=== PATIENT | female | born 1985 | race Caucasian/White ===

== ENCOUNTER 2016-10-11 13:24 | Emergency (ER) | payer SELFPAY ==
--- NOTE | 2016-10-11 14:14 | ED CLINICAL REPORT ---
Clinical Report - Physicians/Mid Levels [facility] [address] [place] [place] [address] 10/11/2016 13:27 [id number] Time Seen: 14:16 Oct 11 2016. Arrived- By private vehicle. Historian- patient. HISTORY OF PRESENT ILLNESS Chief Complaint: DENTAL PAIN. This started just prior to arrival and is still present. Pain described as moderate. (patient reports fractures of the upper tooth about 6-8 months previously, has not been given her problems until yesterday, she felt pain and swelling. No diff swallowing. NO meds/ tx prior. No recent dental visit. No trauma . No cough.). REVIEW OF SYSTEMS No fever, diarrhea or abdominal pain. All systems otherwise negative, except as recorded above. SOCIAL HISTORY Current every day smoker. Alcohol use. PHYSICAL EXAM Appearance: Alert. No acute distress. Head: (facial upper swelling just superior to lip, no erythema). ENT: Dental tenderness. Ears normal. Nose normal. Pharynx normal. Lips normal. (gum erythema, with fx of molar tooth to left side, with surrounding tendernss. uvula midline). No trismus. Neck: Lymphadenopathy present. Trachea midline. No adenopathy. Thyroid normal. Respiratory: No respiratory distress. Breath sounds normal. Abdomen: Soft. No organomegaly. No abdominal tenderness or rebound tenderness. Skin: Normal skin color. No rash. PROGRESS AND PROCEDURES Course of Care: Patient with uvula midline, no trismus. No signs of Andrew's angina. Patient very stable. Patient does require follow-up with a dentist, as this will continue to recur. Patient is stable. Symptoms better. Patient/family counseled. Disposition: Discharged. Condition: good. CLINICAL IMPRESSION Moderate dental pain. INSTRUCTIONS Drink plenty of fluids. (external ice warm salt water gargles Take probiotics). Prescription Medications: Cleocin 300 mg: take 1 capsule orally every 8 hours for 10 days. No refill. Substitution is permissible. Ibuprofen 800 mg tablets: take 1 tablet orally every 8 hours for 5 days, as needed for pain. Dispense fifteen (15). No refill. Follow-up: Follow up with a specialist. (Electronically signed by Margo Hernandez P.A.-C 10/11/2016 14:54)
--- NOTE | 2016-10-11 14:14 | ED CLINICAL REPORT ---
Clinical Report - Physicians/Mid Levels [facility] [address] [place] [place] [address] 10/11/2016 13:27 [id number] Time Seen: 14:16 Oct 11 2016. Arrived- By private vehicle. Historian- patient. HISTORY OF PRESENT ILLNESS Chief Complaint: DENTAL PAIN. This started just prior to arrival and is still present. Pain described as moderate. (patient reports fractures of the upper tooth about 6-8 months previously, has not been given her problems until yesterday, she felt pain and swelling. No diff swallowing. NO meds/ tx prior. No recent dental visit. No trauma . No cough.). REVIEW OF SYSTEMS No fever, diarrhea or abdominal pain. All systems otherwise negative, except as recorded above. SOCIAL HISTORY Current every day smoker. Alcohol use. PHYSICAL EXAM Appearance: Alert. No acute distress. Head: (facial upper swelling just superior to lip, no erythema). ENT: Dental tenderness. Ears normal. Nose normal. Pharynx normal. Lips normal. (gum erythema, with fx of molar tooth to left side, with surrounding tendernss. uvula midline). No trismus. Neck: Lymphadenopathy present. Trachea midline. No adenopathy. Thyroid normal. Respiratory: No respiratory distress. Breath sounds normal. Abdomen: Soft. No organomegaly. No abdominal tenderness or rebound tenderness. Skin: Normal skin color. No rash. PROGRESS AND PROCEDURES Course of Care: Patient with uvula midline, no trismus. No signs of Andrew's angina. Patient very stable. Patient does require follow-up with a dentist, as this will continue to recur. Patient is stable. Symptoms better. Patient/family counseled. Disposition: Discharged. Condition: good. CLINICAL IMPRESSION Moderate dental pain. INSTRUCTIONS Drink plenty of fluids. (external ice warm salt water gargles Take probiotics). Prescription Medications: Cleocin 300 mg: take 1 capsule orally every 8 hours for 10 days. No refill. Substitution is permissible. Ibuprofen 800 mg tablets: take 1 tablet orally every 8 hours for 5 days, as needed for pain. Dispense fifteen (15). No refill. Follow-up: Follow up with a specialist. (Electronically signed by Margo Hernandez P.A.-C 10/11/2016 14:54)
--- NOTE | 2016-10-11 14:14 | ED ORDER SUMMARY ---
..... Patient: AMADA GALLAGHER OrderSheet [facility] VisitID: [id number] [address] [place] [address] 31y, F Registration Date/Time: 10/11/2016 ORDER SHEET Weight: 77.1 kg (stated) Allergies: No Known Drug Allergy GENERAL ORDERS: MEDICATION ORDERS: Clindamycin PO 300 mg (NOW) (14:13 10/11/2016 EKorolekorin P.A.-C) (Ack 14:14 DDean R.N.) (14:22 DDean R.N.) Motrin PO 800 mg (NOW) (14:13 10/11/2016 Barbilekorin P.A.-C) (Ack 14:14 DDean R.N.) (14:23 DDean R.N.) Hydrocodone-APAP PO 5/325 mg (NOW, HIGH ALERT MEDICATION) (14:13 10/11/2016 Madelyn P.A.-C) (Ack 14:14 DDean R.N.) (14:23 DDean R.N.) IV FLUIDS: ORDER SHEET NOTES: [Electronically signed by Tonya Freitas R.N. (14:23 10/11/2016)] [Electronically signed by Margo HernandezAEnma-C (14:54 10/11/2016)] [Electronically locked/signed by Tonya rFeitas R.N. (14:23 10/11/2016)]
--- NOTE | 2016-10-11 14:14 | ED ORDER SUMMARY ---
..... Patient: AMADA GALLAGHER OrderSheet [facility] VisitID: [id number] [address] [place] [address] 31y, F Registration Date/Time: 10/11/2016 ORDER SHEET Weight: 77.1 kg (stated) Allergies: No Known Drug Allergy GENERAL ORDERS: MEDICATION ORDERS: Clindamycin PO 300 mg (NOW) (14:13 10/11/2016 EKorolekoirn P.A.-C) (Ack 14:14 DDean R.N.) (14:22 DDean R.N.) Motrin PO 800 mg (NOW) (14:13 10/11/2016 Barbilekorin P.A.-C) (Ack 14:14 DDean R.N.) (14:23 DDean R.N.) Hydrocodone-APAP PO 5/325 mg (NOW, HIGH ALERT MEDICATION) (14:13 10/11/2016 Madelyn P.A.-C) (Ack 14:14 DDean R.N.) (14:23 DDean R.N.) IV FLUIDS: ORDER SHEET NOTES: [Electronically signed by Tonya Freitas R.N. (14:23 10/11/2016)] [Electronically signed by Margo HernandezAEnma-C (14:54 10/11/2016)] [Electronically locked/signed by Tonya Freitas R.N. (14:23 10/11/2016)]
--- NOTE | 2016-10-11 14:14 | ED NURSING NOTES ---
Clinical Report - Nurses [facility] [address] [place] [address] 10/11/2016 13:27 Patient: AMADA GALLAGHER TRIAGE Triage time 1402. Acuity: LEVEL 4. Chief Complaint: LEFT UPPER TOOTHACHE and SWELLING OF JAW / FACE. --14:10 Tonya Freitas R.N. 14:00 10/11/16. BP: 121/79. HR: 94. RR: 18. O2 saturation: 98%. Temp: 98 F. Pain level now: 02/17. --14:10 Tonya Freitas R.N. Weight: 77.1 kg stated. Height/Length: 59 inches Per Patient. BMI: 34.4. --14:08 Tonya Freitas R.N. Medications Excedrin Extra Strength Oral 2 tabs yesterday 1600. None. --14:07 Tonya Freitas R.N. Allergies No Known Drug Allergy. --14:07 Tonya Freitas R.N. History Arrived by private vehicle. Historian: patient. Accompanied by friend. No primary care physician. This started yesterday. Onset. (cracked tooth 6 months ago- Left upper area, faical pain and swelling onset yesterday. left side). She has had facial pain. She has had swelling of the face. PAST MEDICAL HX: Negative. Immunizations: up-to-date. Last normal menstrual period- 1 week. SURGERY HX: No history of previous surgery. SOCIAL HX: Heavy tobacco smoker- less than 1 pack per day. Occasional alcohol use. No drug use. --14:10 Tonya Freitas R.N. Interventions ID band on patient. To treatment room. --14:10 Tonya Freitas R.N. PHYSICAL ASSESSMENT 14:02. Ambulatory to room. GENERAL / NEURO / PSYCH: Alert. Oriented X 4. Appears in pain. HEENT: Facial swelling present. Voice within normal limits. Mouth within normal limits upon inspection. Dental tenderness. CVS: Capillary refill less than 2 seconds. SKIN: Skin is warm and dry. --14:11 Tonya Freitas R.N. NURSING PROGRESS NOTES 14:07. Cold pack applied. Reassurance given. Patient placed in chair. Patient ready for evaluation- chart flagged. --14:11 Tonya Freitas R.N. 14:12 10/11/16. ( Pt seen by EDPA in triage room). --14:12 Tonya Freitas R.N. 14:15 10/11/2016 Clindamycin PO Capsules 300 mg given. Allergies verified and confirmed 5 rights. --14:22 Tonya Freitas R.N. 14:15 10/11/2016 Motrin PO Tablets 800 mg given. Allergies verified and confirmed 5 rights. --14:23 Tonya Freitas R.N. 14:15 10/11/2016 Hydrocodone-APAP (Hydrocodone-Acetaminophen) PO 5/325 mg Tablets 1 tab given. Allergies verified, confirmed 5 rights and sedative warning given to the patient. --14:23 Tonya Freitas R.N. 14:15 pt given po meds. --14:23 Tonya Freitas R.N. DISPOSITION / DISCHARGE 14:18. Condition at departure: unchanged and stable. No learning barriers present. Discharge instructions provided and reviewed with the patient. Reviewed medication(s) (clindamycin, motrin). Reviewed referrals (dental referral sheet given). Patient verbalized understanding. Written instructions provided in Bulgarian. The patient was discharged home and accompanied by construction electrician. She left the Emergency Department ambulatory and via private vehicle. Food Service Hotel Runner driving. --14:22 Tonya Freitas R.N. 14:20 10/11/16. BP: deferred. HR: deferred. RR: deferred. O2 saturation: deferred. Temp: deferred. Pain level now: 02/17. --14:22 Tonya Freitas R.N. Locked/Released at 10/11/2016 14:23 by Tonya Freitas R.N.
--- NOTE | 2016-10-11 14:14 | ED NURSING NOTES ---
Clinical Report - Nurses [facility] [address] [place] [address] 10/11/2016 13:27 Patient: AMADA GALLAGHER TRIAGE Triage time 1402. Acuity: LEVEL 4. Chief Complaint: LEFT UPPER TOOTHACHE and SWELLING OF JAW / FACE. --14:10 Tonya Freitas R.N. 14:00 10/11/16. BP: 121/79. HR: 94. RR: 18. O2 saturation: 98%. Temp: 98 F. Pain level now: 02/17. --14:10 Tonya Freitas R.N. Weight: 77.1 kg stated. Height/Length: 59 inches Per Patient. BMI: 34.4. --14:08 Tonya Freitas R.N. Medications Excedrin Extra Strength Oral 2 tabs yesterday 1600. None. --14:07 Tonya Freitas R.N. Allergies No Known Drug Allergy. --14:07 Tonya Freitas R.N. History Arrived by private vehicle. Historian: patient. Accompanied by friend. No primary care physician. This started yesterday. Onset. (cracked tooth 6 months ago- Left upper area, faical pain and swelling onset yesterday. left side). She has had facial pain. She has had swelling of the face. PAST MEDICAL HX: Negative. Immunizations: up-to-date. Last normal menstrual period- 1 week. SURGERY HX: No history of previous surgery. SOCIAL HX: Heavy tobacco smoker- less than 1 pack per day. Occasional alcohol use. No drug use. --14:10 Tonya Freitas R.N. Interventions ID band on patient. To treatment room. --14:10 Tonya Freitas R.N. PHYSICAL ASSESSMENT 14:02. Ambulatory to room. GENERAL / NEURO / PSYCH: Alert. Oriented X 4. Appears in pain. HEENT: Facial swelling present. Voice within normal limits. Mouth within normal limits upon inspection. Dental tenderness. CVS: Capillary refill less than 2 seconds. SKIN: Skin is warm and dry. --14:11 Tonya Freitas R.N. NURSING PROGRESS NOTES 14:07. Cold pack applied. Reassurance given. Patient placed in chair. Patient ready for evaluation- chart flagged. --14:11 Tonya Freitas R.N. 14:12 10/11/16. ( Pt seen by EDPA in triage room). --14:12 Tonya Freitas R.N. 14:15 10/11/2016 Clindamycin PO Capsules 300 mg given. Allergies verified and confirmed 5 rights. --14:22 Tonya Freitas R.N. 14:15 10/11/2016 Motrin PO Tablets 800 mg given. Allergies verified and confirmed 5 rights. --14:23 Tonya Freitas R.N. 14:15 10/11/2016 Hydrocodone-APAP (Hydrocodone-Acetaminophen) PO 5/325 mg Tablets 1 tab given. Allergies verified, confirmed 5 rights and sedative warning given to the patient. --14:23 Tonya Freitas R.N. 14:15 pt given po meds. --14:23 Tonya Freitas R.N. DISPOSITION / DISCHARGE 14:18. Condition at departure: unchanged and stable. No learning barriers present. Discharge instructions provided and reviewed with the patient. Reviewed medication(s) (clindamycin, motrin). Reviewed referrals (dental referral sheet given). Patient verbalized understanding. Written instructions provided in [place]. The patient was discharged home and accompanied by anesthesia attending. She left the Emergency Department ambulatory and via private vehicle. Plating Foreman driving. --14:22 Tonya Freitas R.N. 14:20 10/11/16. BP: deferred. HR: deferred. RR: deferred. O2 saturation: deferred. Temp: deferred. Pain level now: 02/17. --14:22 Tonya Freitas R.N. Locked/Released at 10/11/2016 14:23 by Tonya Freitas R.N.
--- NOTE | 2016-10-11 14:54 | ED MED RECONCILIATION SUMMARY ---
Patient: AMADA GALLAGHER Medication Reconciliation Report [facility]ated [facility] VisitID: [id number] [address] [place] [address] 31y, F Registration Date/Time: 10/11/2016 Weight: 77.1 kg Height/Length: 59 in. BMI: 34.4 ALLERGIES: No Known Drug Allergy The patient's Home Medications are listed below: THE FOLLOWING MEDICATIONS NEED TO BE RECONCILED: Excedrin Extra Strength Oral 2 tabs yesterday 1600 The source(s) of the original Home Medication information: Not obtained. The following Medications were given to the patient in the Emergency Department: Clindamycin [PO] PO 300 mg, administered: 10/11/2016 2:15:00 PM Motrin [PO] PO 800 mg, administered: 10/11/2016 2:15:00 PM Hydrocodone-APAP [PO] PO 1 tab, administered: 10/11/2016 2:15:00 PM The following Medications were prescribed to the patient: Cleocin 300 mg: take 1 capsule orally every 8 hours for 10 days. No refill. Substitution is permissible. -- Margo Hernandez, P.A.-C Ibuprofen 800 mg tablets: take 1 tablet orally every 8 hours for 5 days, as needed for pain. Dispense fifteen (15). No refill. -- Margo Hernandez, P.A.-C
--- NOTE | 2016-10-11 14:54 | ED MAR SUMMARY ---
..... Medication Administration Record [facility] [address] [place] [address] Patient: AMADA GALLAGHER Visit ID: [id number] 31y, F Weight: 77.1 kg Height/Length: 59 in BMI: 34.4 ALLERGIES: No Known Drug Allergy Given 14:10/11/2016 Tonya Freitas R.N. Medication Administered: CLINDAMYCIN [PO], Dose: 300 mg Capsules PO. Medication Ordered: Clindamycin PO 300 mg (NOW). Given 14:10/11/2016 Tonya Freitsa R.N. Medication Administered: MOTRIN [PO], Dose: 800 mg Tablets PO. Medication Ordered: Motrin PO 800 mg (NOW). Given :10/11/2016 Tonya Freitas R.N. Medication Administered: HYDROCODONE-APAP [PO] (HYDROCODONE-ACETAMINOPHEN), Dose: 1 tab 5/325 mg Tablets PO. Medication Ordered: Hydrocodone-APAP PO 5/325 mg (NOW, HIGH ALERT MEDICATION).
--- NOTE | 2016-10-11 14:54 | ED MAR SUMMARY ---
..... Medication Administration Record [facility] [address] [place] [address] Patient: AMADA GALLAGHER Visit ID: [id number] 31y, F Weight: 77.1 kg Height/Length: 59 in BMI: 34.4 ALLERGIES: No Known Drug Allergy Given 14:10/11/2016 Tonya Freitas R.N. Medication Administered: CLINDAMYCIN [PO], Dose: 300 mg Capsules PO. Medication Ordered: Clindamycin PO 300 mg (NOW). Given 14:10/11/2016 Tonya Freitas R.N. Medication Administered: MOTRIN [PO], Dose: 800 mg Tablets PO. Medication Ordered: Motrin PO 800 mg (NOW). Given :10/11/2016 Tonya Freitas R.N. Medication Administered: HYDROCODONE-APAP [PO] (HYDROCODONE-ACETAMINOPHEN), Dose: 1 tab 5/325 mg Tablets PO. Medication Ordered: Hydrocodone-APAP PO 5/325 mg (NOW, HIGH ALERT MEDICATION).
--- NOTE | 2016-10-11 14:54 | ED MED RECONCILIATION SUMMARY ---
Patient: AMADA GALLAGHER Medication Reconciliation Report [facility] VisitID: [id number] [address] [place] [address] 31y, F Registration Date/Time: 10/11/2016 Weight: 77.1 kg Height/Length: 59 in. BMI: 34.4 ALLERGIES: No Known Drug Allergy The patient's Home Medications are listed below: THE FOLLOWING MEDICATIONS NEED TO BE RECONCILED: Excedrin Extra Strength Oral 2 tabs yesterday 1600 The source(s) of the original Home Medication information: Not obtained. The following Medications were given to the patient in the Emergency Department: Clindamycin [PO] PO 300 mg, administered: 10/11/2016 2:15:00 PM Motrin [PO] PO 800 mg, administered: 10/11/2016 2:15:00 PM Hydrocodone-APAP [PO] PO 1 tab, administered: 10/11/2016 2:15:00 PM The following Medications were prescribed to the patient: Cleocin 300 mg: take 1 capsule orally every 8 hours for 10 days. No refill. Substitution is permissible. -- Margo Hernandez, P.A.-C Ibuprofen 800 mg tablets: take 1 tablet orally every 8 hours for 5 days, as needed for pain. Dispense fifteen (15). No refill. -- Margo Hernandez, P.A.-C
--- NOTE | 2016-10-11 14:54 | ED DISCHARGE INSTRUCTIONS ---
Patient: AMADA GALLAGHER General Instructions [facility] VisitID: [id number] [address] [place] [address] 31y, F Registration Date/Time: 10/11/2016 Moderate dental pain. INSTRUCTIONS Drink plenty of fluids. (external ice warm salt water gargles Take probiotics). Prescription Medications: Cleocin 300 mg: take 1 capsule orally every 8 hours for 10 days. No refill. Substitution is permissible. Ibuprofen 800 mg tablets: take 1 tablet orally every 8 hours for 5 days, as needed for pain. Dispense fifteen (15). No refill. Follow-up: Follow up with a specialist. ADDITIONAL INFORMATION Dental Pain A crack or cavity in the tooth, which exposes the sensitive inner area of the tooth can cause tooth pain. An infection in the gum or the root of the tooth can cause pain and swelling. The pain is often made worse by drinking hot or cold fluids, or biting on hard foods. Pain may spread from the tooth to the ear or jaw on the same side. Home Care: Avoid hot and cold foods and liquids since your tooth may be sensitive to temperature changes. If your tooth is chipped or cracked, or if there is a large open cavity, apply OIL OF CLOVES (available uibp-iuc-sfmjauo in drug stores) directly to the tooth to reduce pain. Some pharmacies carry an dshx-ynh-vlamegv "toothache kit." This contains a paste, which can be applied over the exposed tooth to decrease sensitivity. A cold pack on your jaw over the sore area may help reduce pain. You may use acetaminophen (Tylenol) or ibuprofen (Motrin, Advil) to control pain, unless another medicine was prescribed. [ NOTE: If you have chronic liver or kidney disease or ever had a stomach ulcer or GI bleeding, talk with your doctor before using these medicines.] If you have signs of an infection, an antibiotic will be given. Take it as directed. Follow-Up as directed with a dentist. Your pain may go away with the treatment given. However, only a dentist can fully evaluate and treat the cause and prevent the pain from coming back again. TOOTHACHE IS A SIGN OF DISEASE IN YOUR TOOTH AND SHOULD BE EXAMINED AND TREATED BY A DENTIST. Get Prompt Medical Attention if any of the following occur: Your face becomes swollen or red Pain worsens or spreads to the neck Fever over 100.4 F (38.0 C) Unusual drowsiness; headache or stiff neck; weakness or fainting Pus drains from the tooth Difficulty swallowing or breathing You have been given the following additional information: Dental Pain (Electronically signed by Margo Hernandez P.A.-C 10/11/2016 14:54)
--- NOTE | 2016-10-11 14:54 | ED DISCHARGE INSTRUCTIONS ---
Patient: AMADA GALLAGHER General Instructions [facility] VisitID: [id number] [address] [place] [address] 31y, F Registration Date/Time: 10/11/2016 Moderate dental pain. INSTRUCTIONS Drink plenty of fluids. (external ice warm salt water gargles Take probiotics). Prescription Medications: Cleocin 300 mg: take 1 capsule orally every 8 hours for 10 days. No refill. Substitution is permissible. Ibuprofen 800 mg tablets: take 1 tablet orally every 8 hours for 5 days, as needed for pain. Dispense fifteen (15). No refill. Follow-up: Follow up with a specialist. ADDITIONAL INFORMATION Dental Pain A crack or cavity in the tooth, which exposes the sensitive inner area of the tooth can cause tooth pain. An infection in the gum or the root of the tooth can cause pain and swelling. The pain is often made worse by drinking hot or cold fluids, or biting on hard foods. Pain may spread from the tooth to the ear or jaw on the same side. Home Care: Avoid hot and cold foods and liquids since your tooth may be sensitive to temperature changes. If your tooth is chipped or cracked, or if there is a large open cavity, apply OIL OF CLOVES (available jcav-xhj-jhwhiau in drug stores) directly to the tooth to reduce pain. Some pharmacies carry an gxvn-lcn-pxaiejw "toothache kit." This contains a paste, which can be applied over the exposed tooth to decrease sensitivity. A cold pack on your jaw over the sore area may help reduce pain. You may use acetaminophen (Tylenol) or ibuprofen (Motrin, Advil) to control pain, unless another medicine was prescribed. [ NOTE: If you have chronic liver or kidney disease or ever had a stomach ulcer or GI bleeding, talk with your doctor before using these medicines.] If you have signs of an infection, an antibiotic will be given. Take it as directed. Follow-Up as directed with a dentist. Your pain may go away with the treatment given. However, only a dentist can fully evaluate and treat the cause and prevent the pain from coming back again. TOOTHACHE IS A SIGN OF DISEASE IN YOUR TOOTH AND SHOULD BE EXAMINED AND TREATED BY A DENTIST. Get Prompt Medical Attention if any of the following occur: Your face becomes swollen or red Pain worsens or spreads to the neck Fever over 100.4 F (38.0 C) Unusual drowsiness; headache or stiff neck; weakness or fainting Pus drains from the tooth Difficulty swallowing or breathing You have been given the following additional information: Dental Pain (Electronically signed by Margo Hernandez P.A.-C 10/11/2016 14:54)
== END 2016-10-11 14:18 | disposition home or self-care (01) ==
LOC: ED SRH 13:24
DX: K08.89 Other specified disorders of teeth and supporting structures (principal); F17.210 Nicotine dependence, cigarettes, uncomplicated